=== PATIENT | male | born 1955 | race Caucasian/White ===

== ENCOUNTER → 2023-06-04 07:35 | Outpatient (CLI) | payer MEDICARE, MEDICAID, SELFPAY ==
--- NOTE | 2023-06-04 | DI.NM.S_ITS ---
PROCEDURE: NM EXERCISE TREADMILL NON NUC COMPARISON: None. INDICATIONS: Other forms of dyspnea FINDINGS: the patient exercised for 9 minutes and 16 seconds reaching 85% of maximum predicted heart rate, 10.1METS, CASSIA -28%. Resting ECG showed non-specific ST depressions in the inferior leads that didn't worsen during exercise or recovery. No angina noted but the patient had dizziness at the end of exercise. Rare ectopy noted. IMPRESSION: Low risk, normal ECG only stress test from inducible ischemia standpoint. Good exercise tolerance (10.1METS, CASSIA -28%). No angina noted but the patient had dizziness at the end of exercise. Dictated by: Steff Beatty MD on 06/04/2023 at 13:06 Approved by: Steff Beatty MD on 06/04/2023 at 13:08
== END ==
PROVIDERS: PCP Family Medicine; Referring Provider Family Medicine; Visit Provider Family Medicine
DX: R06.09 Other forms of dyspnea (principal); R07.9 Chest pain, unspecified
CPT/HCPCS: 93017